=== PATIENT | female | born 1975 | race Caucasian/White ===

== ENCOUNTER 2017-12-23 21:29 | Emergency (ER) | payer OTHER, SELFPAY ==
[2017-12-23 21:31] VITALS: BP 124/107; PULSE 97; RESP 16; TEMP 36; O2SAT 98; BMI 54.9
--- NOTE | 2017-12-23 23:16 | RAD_ITS ---
STUDY: X-RAY - RIGHT TIBIA AND FIBULA REASON FOR EXAM: Female, 42 years old. Fall TECHNIQUE: 4 view(s) of the tibia and fibula were obtained. COMPARISON: None. FINDINGS: Normal visualized tibia. Normal visualized fibula. Calcaneal spurring. The soft tissue structures are unremarkable. RAD/Tibia & Fibula 2 Views IMPRESSION: Normal x-ray examination of the tibia and fibula. Electronically Signed: Gonzales Fry DO at 23:37 EDT Tel [phone], Service support ,
--- NOTE | 2017-12-23 23:16 | RAD_ITS ---
STUDY: X-RAY - RIGHT KNEE REASON FOR EXAM: Female, 42 years old. Fall TECHNIQUE: 4 view(s) of the knee. COMPARISON: None. FINDINGS: Normal visualized distal femur. Normal visualized proximal tibia and fibula. Normal proximal tibiofibular articulation. Normal medial femorotibial compartment. Normal lateral femorotibial compartment. Normal patellofemoral articulation. The soft tissue structures are unremarkable. RAD/Knee 4 or More Views IMPRESSION: Normal x-ray examination of the knee. Electronically Signed: Gonzales Fry DO at 23:35 EDT Tel [phone], Service support ,
--- NOTE | 2017-12-23 23:18 | ED.VISSUMM ---
- ER Visit Summary Date of Service: 12/23/17 Chief Complaint: Right knee pain History of Present Illness: The patient is a 42 F presenting with right knee pain. Patient states she was picking up a cat stumbled and fell landing on her right knee. She has been able to ambulate. She did not hit her head or lose consciousness. She is on Xarelto for history of PE. Denies other complaints. Physical Examination: Vitals are stable. Patient is afebrile. Alert no acute distress. HEENT exam is unremarkable. Neck is nontender Lungs are clear and equal bilaterally. Heart is regular rate and rhythm. Extremities right anterior knee tenderness and right proximal lower leg tenderness with contusion. AFROM. Normal distal pulse. Compartments soft. Skin is warm and dry. No focal neurologic deficit. Remainder of exam is unremarkable. Emergency Department Course and Treatment: Right knee and tib-fib x-rays show no acute process. She is given one [place] in the emergency department. She is able to ambulate. Advised to follow-up with her primary care physician when she returns home as she is visiting from out of town. Advised return to ED if worsening complaints. Disposition: Discharge home Impression: Right knee contusion This note was generated with [employer] dictation software. It may contain incorrect words, spelling, and punctuation that were not noted in review of the chart prior to signing ED Disposition - Plan for ED Patient: Chief Complaint: Lower Extremity Injury Instructions: ED Contusion Lower Ext Referrals: [facility] Doctor,Out of [Primary Care Provider] -
--- NOTE | 2017-12-23 23:53 | DCINST.ED_ITS ---
ED Disposition - Plan for ED Patient: Chief Complaint: Lower Extremity Injury Instructions: ED Contusion Lower Ext Referrals: [facility] Doctor,Out of [Primary Care Provider] -
--- NOTE | 2017-12-23 23:54 | ED.DEP ---
ED Disposition - Plan for ED Patient: Chief Complaint: Lower Extremity Injury Instructions: ED Contusion Lower Ext Referrals: [facility] Doctor,Out of [Primary Care Provider] -
[2017-12-24 00:06] VITALS: RESP 18
[2017-12-24 00:07] VITALS: RESP 18
[2017-12-24] MEDS: HYDROcodone Bitartrate/Apap 5/325 Tablet PO (00:09)
== END 2017-12-24 00:10 | disposition home or self-care (01) ==
LOC: ED 23:57
PROVIDERS: Emergency Provider Emergency Medicine
DX: S80.01XA Contusion of right knee, initial encounter (principal); W01.0XXA Fall on same level from slipping, tripping and stumbling without subsequent striking against object, initial encounter; Y93.89 Activity, other specified; Y92.9 Unspecified place or not applicable; Z86.711 Personal history of pulmonary embolism; Z79.01 Long term (current) use of anticoagulants; Z72.0 Tobacco use
CPT/HCPCS: 73564; 73590; 99284

== ENCOUNTER 2018-03-27 10:33 | Emergency (ER) | payer SELFPAY ==
[2018-03-27 10:34] VITALS: BP 123/89; PULSE 107; RESP 18; TEMP 35.7; O2SAT 95; BMI 55.5
--- NOTE | 2018-03-27 10:59 | CT_ITS ---
STUDY: CTA CHEST REASON FOR EXAM: Female, 43 years old. Chest pain RADIATION DOSAGE (If Supplied By Facility): CTDIvol = ( 15.06 ) mGy, DLP = ( 646.89 ) mGycm TECHNIQUE: The examination was performed with the intravenous administration of 100 ml of Isovue 300 contrast material. Post-processing of the angiographic images was performed, with multiplanar reformation and 3D reconstruction. Individualized dose optimization techniques were used for this CT. COMPARISON: None. FINDINGS: Suboptimal exam to evaluate for pulmonary embolism as contrast bolus in the main pulmonary artery is only 137. No large central pulmonary embolism is identified. Comment cannot be made second or third order branch vessels. Normal thoracic aorta and visualized great vessels. There is no demonstrated aortic dissection. Normal heart and pericardium. Normal mediastinum. Normal hilar regions. Normal visualized trachea and bronchi. Lungs are adequately inflated with scattered areas of groundglass airspace disease. Unsure if this represents some type of air trapping. No focal consolidation or infiltrates. Normal pleura. Normal chest wall structures. There are degenerative changes of thoracic spine. There appears to be fatty steatosis of the liver with hepatomegaly. CT/CTA Chest W/WO Contrast IMPRESSION: Suboptimal exam as detailed above. No large central pulmonary embolism is identified. Lungs are adequately inflated with scattered mild areas of groundglass airspace disease. This could represent inflammation or air-trapping. No focal consolidation or infiltrates. There appears to be hepatomegaly and hepatic steatosis. Electronically Signed: Cesario Pantoja DO at 12:36 EDT Tel , Service support ,
--- NOTE | 2018-03-27 10:59 | EKG12_ITS ---
Test Reason : CHEST PRESSURE Blood Pressure : / mmHG Vent. Rate : 096 BPM Atrial Rate : 096 BPM P-R Int : 158 ms QRS Dur : 096 ms QT Int : 374 ms P-R-T Axes : 040 -53 -04 degrees QTc Int : 472 ms Normal sinus rhythm Left anterior fascicular block Anterolateral infarct , age undetermined Abnormal ECG Confirmed by RUSTY YOUNG, LEONID ([id number]), television news video editor TANIKA KAHN ([id number]) on 04/02/2018 9:13:22 AM Referred By: SALVTAORE Confirmed By:LEONID OJEDA MD
[2018-03-27] MEDS: Aspirin 81 MG TAB.CHEW 324 MG PO (11:11)
[2018-03-27] MEDS: 0.9% Normal Saline 1,000 ML 1000 ML IV (11:11)
[2018-03-27 11:23] LABS: Absolute Lymphocyte Count 1.22 X10^3/ul (0.83-4.51); Absolute Neutrophil Count 3.4 X10^3/uL (2.0-7.7); Basophil# 0.06 X10^3/uL; Basophil% 1.2 % (0-1); Eosinophil# 0.07 X10^3/uL; Eosinophils% 1.4 % (0-5); Hematocrit 45.9 % (37-47); Hemoglobin 16.4 g/dl (12.0-15.0); Lymphocyte # 1.22 X10^3/ul (4.0); Lymphocyte % 23.6 % (19-41); Mean Corp Hgb Conc 35.7 g/gl (32-36); Mean Corpuscular Hgb 33.2 pg (27.0-32.0); Mean Corpuscular Volume 92.9 fL (81-99); Mean Platelet Vol. 9.2 fl (6.2-12.0); Monocyte# 0.45 X10^3/uL; Monocyte% 8.7 % (0-10); Neutrophil # 3.35 X10^3/uL (2.7-7.7); Neutrophil % 64.9 % (47-70); Platelet Count 274 K/mm3 (150-450); RBC Distribution Width SD 40.3 fl (35.1-43.9); Red Blood Count 4.94 M/mm3 (4.2-5.4); White Blood Count 5.2 K/mm3 (4.4-11.0)
[2018-03-27 11:25] LABS: POSITIVE COUNT NO; POSITIVE DIFFERENTIAL NO; POSITIVE MORPHOLOGY NO
[2018-03-27 11:37] LABS: Anion Gap 10 (5-15); BUN 13 mg/dL (7-18); Calcium,Total 9.2 mg/dL (8.5-10.1); Chloride 108 mmol/L (98-107); EST Glomerular Filtration Rate 48 mL/min (>60); Est Glom Filt Rate - Afr Amer 58 mL/min (>60); Estimated Creatinine Clearance 48.68 ml/min; Glucose 113 mg/dL (74-106); Potassium 3.6 mmol/L (3.5-5.1); Sodium Level 141 mmol/L (136-145)
[2018-03-27] MEDS: 0.9% Normal Saline 1,000 ML 999 ML IV (12:35)
[2018-03-27 12:36] VITALS: BP 143/69; PULSE 77; RESP 20; O2SAT 96
--- NOTE | 2018-03-27 13:04 | ED.VISSUMM ---
- ER Visit Summary Date of Service: 03/27/18 Chief Complaint: Shortness of breath History of Present Illness: The patient is a 43 F with a history of 2 prior pulmonary emboli, the last one being 2-1/2 years ago presents with shortness of breath and chest tightness, essentially for the past 2 days but somewhat worse tonight. She has been under a lot of stress and has been experiencing anxiety as well which she believes may be causing her symptoms but since she has been off of her Xarelto for the last 2 months, she is concerned about a pulmonary embolism. Additionally, she did drive here from [place] approximately 2 weeks ago. She denies any lower extremity pain or swelling at this time. She has no cough Physical Examination: Vitals are within normal limits. Lungs are clear bilaterally. Abdomen is soft and nontender. No tenderness along the lower extremity venous system. Strong pulses in all extremities. Mental status examination is normal. No suicidal thoughts or ideation. Test Results: BMP was normal except for slightly elevated creatinine. We discussed the risks of performing the CT angiogram and she would prefer to proceed. She is certainly very high risk with a history of prior pulmonary embolism (unprovoked) and recent travel, not on her blood thinners for several months. We proceeded with a CT angiogram and hydrated her with a full 2 L of fluid. There is no evidence of large central PE but the contrast bolus was somewhat inadequate. It is reassuring that she does not have a large central PE and her other laboratory studies are within normal limits, including a negative troponin. EKG is unremarkable. No evidence of an acute cardiac event. After discussion with her, we elected to restart her on Xarelto which would cover her even if she had a small peripheral PE. She feels strongly however that her symptoms are secondary to anxiety which is certainly possible but I cannot say that with absolute conviction. Emergency Department Course and Treatment: Restart Xarelto Treatment Plan: Follow up closely with her doctor in [place] Disposition: Home in stable condition Impression: Initial encounter shortness of breath This note was generated with [employer] dictation software. It may contain incorrect words, spelling, and punctuation that were not noted in review of the chart prior to signing ED Disposition - Plan for ED Patient: Chief Complaint: General Illness Instructions: ED Dyspnea Shortness of Breath Prescriptions: Rivaroxaban [Xarelto] 1 each PO DAILY #1 [email or web address] Referrals: [facility] Doctor,Out of [Primary Care Provider] -
--- NOTE | 2018-03-27 13:09 | ED.DCSUM_ITS ---
- ER Visit Summary Date of Service: 03/27/18 Chief Complaint: Shortness of breath History of Present Illness: The patient is a 43 F with a history of 2 prior pulmonary emboli, the last one being 2-1/2 years ago presents with shortness of breath and chest tightness, essentially for the past 2 days but somewhat worse tonight. She has been under a lot of stress and has been experiencing anxiety as well which she believes may be causing her symptoms but since she has been off of her Xarelto for the last 2 months, she is concerned about a pulmonary embolism. Additionally, she did drive here from [place] approximately 2 weeks ago. She denies any lower extremity pain or swelling at this time. She has no cough Physical Examination: Vitals are within normal limits. Lungs are clear bilaterally. Abdomen is soft and nontender. No tenderness along the lower extremity venous system. Strong pulses in all extremities. Mental status examination is normal. No suicidal thoughts or ideation. Test Results: BMP was normal except for slightly elevated creatinine. We discussed the risks of performing the CT angiogram and she would prefer to proceed. She is certainly very high risk with a history of prior pulmonary embolism (unprovoked) and recent travel, not on her blood thinners for several months. We proceeded with a CT angiogram and hydrated her with a full 2 L of fluid. There is no evidence of large central PE but the contrast bolus was somewhat inadequate. It is reassuring that she does not have a large central PE and her other laboratory studies are within normal limits, including a negative troponin. EKG is unremarkable. No evidence of an acute cardiac event. After discussion with her, we elected to restart her on Xarelto which would cover her even if she had a small peripheral PE. She feels strongly however that her symptoms are secondary to anxiety which is certainly possible but I cannot say that with absolute conviction. Emergency Department Course and Treatment: Restart Xarelto Treatment Plan: Follow up closely with her doctor in [place] Disposition: Home in stable condition Impression: Initial encounter shortness of breath This note was generated with [employer] dictation software. It may contain incorrect words, spelling, and punctuation that were not noted in review of the chart prior to signing ED Disposition - Plan for ED Patient: Chief Complaint: General Illness Instructions: ED Dyspnea Shortness of Breath Prescriptions: Rivaroxaban [Xarelto] 1 each PO DAILY #1 [email or web address] Referrals: [facility] Doctor,Out of [Primary Care Provider] -
[2018-03-27 13:22] VITALS: BP 147/87; PULSE 73; RESP 15; O2SAT 97
== END 2018-03-27 13:27 | disposition home or self-care (01) ==
LOC: ED 11:31
PROVIDERS: Emergency Provider Emergency Medicine
DX: R06.02 Shortness of breath (principal); Z86.711 Personal history of pulmonary embolism; Z79.01 Long term (current) use of anticoagulants
CPT/HCPCS: 71275; 80048; 84484; 85025; 93005; 96360; 96361; 99284; J7030; Q9967; A4216